=== PATIENT | female | born 1990 | race Caucasian/White ===

== ENCOUNTER 2017-08-06 17:29 | Inpatient (IN) | payer MEDICAID, OTHER ==
[~2017-08-06] VITALS: Ht 165.1 cm; Wt 79.0 kg
[2017-08-06] VITALS (8 sets, daily range): BP systolic 115–137; BP diastolic 57–83; PULSE 79–86; RESP 16–20; TEMP 98.2–98.4
[2017-08-06] MEDS ORDERED: LACTATED RINGER'S 1000 ML INJ 1,000 ML IV PRN (18:02)
[2017-08-06] MEDS ORDERED: LIDOCAINE HCL 1% 50 ML VIAL I-DERMAL PRN (18:15)
[2017-08-06] MEDS ORDERED: ONDANSETRON HCL 4 MG/2 ML VIAL IV PUSH PRN (18:15)
[2017-08-06] MEDS ORDERED: SODIUM CHLORID 0.9% 500 ML INJ 500 ML IV PRN (18:15)
[2017-08-06] MEDS ORDERED: LIDOCAINE HCL 1% 50 ML VIAL INFIL PRN (18:15)
[2017-08-06] MEDS ORDERED: CITRIC ACID-SODIUM CITRATE LIQ 30 ML UDC PO SCH (18:15)
[2017-08-06] MEDS ORDERED: OXYTOCIN 30 UNITS-500ML PREMIX 500 ML IV PRN (18:15)
[2017-08-06] MEDS ORDERED: OXYTOCIN 30 UNITS-500ML PREMIX 500 ML IV ONE (18:15)
[2017-08-06] MEDS ORDERED: MINERAL OIL 10 ML VIAL TOPICAL PRN (18:15)
[2017-08-06] MEDS ORDERED: SODIUM CHLOR 0.9% 1000 ML INJ 1,000 ML IV PRN (18:22)
--- NOTE | 2017-08-06 18:33 | HHI.HP ---
HPI Chief Complaint decreased movement, abdominal pain at term Date Seen: Aug 06, 2017 Travel History International Travel<30 Days: No Contact w/Intl Traveler<30Days: No Known Affected Area: No History of Present Illness HPI 26 yo G1 with EDC 08/10/17 presented to office for routine OB visit with complaint of decreased movement, abdominal cramping and vaginal pain. On exam FHTs 110s, NST reactive but low baseline. SVE 2/80/-1, vaginal bleeding on exam. D/w pt recommend admission on labor and delivery, may be in early labor but based on symptoms and exam and low baseline FHTs would recommend labor induction/augmentation. Pain 2/10 abdominal cramps. No LOF. Weeks Gestation: 39 Para: 0 : 1 Miscarriage: 0 : 0 History Past Medical History Medical History: Denies Significant Hx Obstetric History Obstetric History G1 = current Past Surgical History Surgical History: No Previous Surgery Family History Family History: Negative Social History Alcohol Use: No Tobacco Use: No Substance Abuse: No Allergies-Medications (Allergen,Severity, Reaction): Coded Allergies: No Known Allergies (Unverified , 08/06/17) Review of Systems General / Constitutional: Weight Gain, No: Fever, Chills, Other Eyes: No: Diploplia, Blurred Vision, Visual changes, Pain, Photophobia HENT: No: Headaches, Vertigo, Lightheadedness Cardiovascular: No: Irregular Rhythm, Chest Pain or Discomfort, Palpitations, Tachycardia, Syncope, Varicosities, Edema, Cyanosis Respiratory: No: Cough, Short of Breath, Other Gastrointestinal: No: Nausea, Vomiting, Diarrhea Genitourinary: Pelvic Pain (cramps), Vaginal Bleeding, No: Decreased Urinary Output, Oliguria Musculoskeletal: No: Limited ROM, Weakness, Cramping, Edema, Pain Skin: No Rash, No Itching, No Dryness, No Lumps, No Change in Pigmentation, No Change in Nails, No Alopecia, No Lesions Neurologic: No: Weakness, Dizziness, Syncope, Focal Abnormalities, Coordination Problem, Headache, Slurred Speech, Seizures Psychiatric: No: Depression, Suicidal Ideations, Homicidal Ideation Endocrine: No: Heat Intolerance, Cold Intolerance, Polydipsia, Polyuria, Other Physical Exam Vital Signs Date Time Temp Pulse Resp B/P (MAP) Pulse Ox O2 Delivery O2 Flow Rate FiO2 08/06/17 18:08 98.2 20 08/06/17 18:00 85 127/83 (98) Narrative GENERAL: Well-nourished, well-developed patient. SKIN: Warm and dry. HEAD: Normocephalic and atraumatic. EYES: No scleral icterus. No injection or drainage. ENT: No nasal drainage noted. Mucous membranes pink. Airway patent. NECK: Supple, trachea midline. No JVD. CARDIOVASCULAR: Regular rate and rhythm without murmurs, gallops, or rubs. RESPIRATORY: Breath sounds equal bilaterally. No accessory muscle use. BREASTS: deferred ABDOMEN/GI: Abdomen soft, non-tender, bowel sounds present, no rebound, no guarding Gravid to [39] weeks size Fundal Height: [39] GENITOURINARY: External Genitalia: intact and normal in appearance BUS glands: [wnl] Cervix: [mid] Dilatation: [1-2] Effacement: [801] Station: [-1] Presentation: [vtx] Membranes: [intact Uterine Contractions: [q3-5 min] FHT's: Category: [I] Baseline: [115] Reactive: [y] Variability: [y] Decels: [n] EXTREMITIES: No cyanosis or edema. BACK: Nontender without obvious deformity. No CVA tenderness. NEUROLOGICAL: Awake and alert. Motor and sensory grossly within normal limits. Five out of 5 muscle strength in all muscle groups. Normal speech. Caprini VTE Risk Assessment Caprini VTE Risk Assessment: No/Low Risk (score <= 1) VTE Pharm Contraindication: High risk for bleeding Caprini Risk Assessment Model Point Value = 1 Point Value = 2 Point Value = 3 Point Value = 5 Age 41-60 Minor surgery BMI > 25 kg/m2 Swollen legs Varicose veins or History of unexplained or recurrent spontaneous Oral contraceptives or hormone replacement Sepsis (< 1 month) Serious lung disease, including pneumonia (< 1 month) Abnormal pulmonary function Acute myocardial infarction Congestive heart failure (< 1 month) History of inflammatory bowel disease Medical patient at bed rest Age 61-74 Arthroscopic surgery Major open surgery (> 45 min) Laparoscopic surgery (> 45 min) Malignancy Confined to bed (> 72 hours) Immobilizing plaster cast Central venous access Age >= 75 History of VTE Family history of VTE Factor V Leiden Prothrombin [id number] Lupus anticoagulant Anticardiolipin antibodies Elevated serum homocysteine Heparin-induced thrombocytopenia Other congenital or acquired thrombophilia Stroke (< 1 month) Elective arthroplasty Hip, pelvis, or leg fracture Acute spinal cord injury (< 1 month) Prophylaxis Regimen Total Risk Factor Score Risk Level Prophylaxis Regimen 0-1 Low Early ambulation 2 Moderate Order ONE of the following: *Sequential Compression Device (SCD) *Heparin 5000 units SQ BID 3-4 Higher Order ONE of the following medications: *Heparin 5000 units SQ TID *Enoxaparin/Lovenox 40 mg SQ daily (WT < 150 kg, CrCl > 30 mL/min) *Enoxaparin/Lovenox 30 mg SQ daily (WT < 150 kg, CrCl > 10-29 mL/min) *Enoxaparin/Lovenox 30 mg SQ BID (WT < 150 kg, CrCl > 30 mL/min) AND/OR *Sequential Compression Device (SCD) 5 or more Highest Order ONE of the following medications: *Heparin 5000 units SQ TID (Preferred with Epidurals) *Enoxaparin/Lovenox 40 mg SQ daily (WT < 150 kg, CrCl > 30 mL/min) *Enoxaparin/Lovenox 30 mg SQ daily (WT < 150 kg, CrCl > 10-29 mL/min) *Enoxaparin/Lovenox 30 mg SQ BID (WT < 150 kg, CrCl > 30 mL/min) AND *Sequential Compression Device (SCD) Data Data Vital Signs Reviewed: Yes Orders Orders Admit To Inpatient (08/06/17 ) Vital Signs (Adult) .Per protocol (08/06/17 18:02) Activity Oob Ad [place] (08/06/17 18:02) Heart (08/06/17 18:02) Amnioinfusion (08/06/17 18:02) Urinary Catheter Management .ONCE (08/06/17 18:02) Diet Npo (08/06/17 Dinner) Lactated Ringer's 1000 Ml Inj (Lr 1000 M (08/06/17 18:02) Lactated Ringer's 1000 Ml Inj (Lr 1000 M (08/06/17 18:02) Sodium Chlorid 0.9% 500 Ml Inj (Ns 500 M (08/06/17 18:15) Sodium Chlor 0.9% 1000 Ml Inj (Ns 1000 M (08/06/17 18:22) Lidocaine 1% Inj (50 Ml) (Xylocaine 1% I (08/06/17 18:15) Citric Acid-Sodium Citrate Liq (Bicitra (08/06/17 18:15) Ondansetron Inj (Zofran Inj) (08/06/17 18:15) Fentanyl Inj (Fentanyl Inj) (08/06/17 18:15) Fentanyl Inj (Fentanyl Inj) (08/06/17 18:15) Complete Blood Count With Diff (08/06/17 18:02) Hold Clot (08/06/17 18:02) Abo/Rh Blood Type (08/06/17 18:02) Urinalysis - C+S If Indicated (08/06/17 18:) Drug Screen, Random Urine (08/06/17 18:) Ob/Psych Drug Screen, Urine (08/06/17 18:02) Resp Oxygen Non Rebreathe Mask (08/06/17 ) ^ Epidural / Intrathecal Infus (08/06/17 18:02) Oxytocin 30 Units-500ml Premix (Pitocin (08/06/17 18:15) Lidocaine 1% Inj (50 Ml) (Xylocaine 1% I (08/06/17 18:15) Light Mineral Oil (Muri-Lube Oil) (08/06/17 18:15) ^ Non Stress Test (08/06/17 18:02) Response To Medication .Post New Med Administration, Reaction (08/06/17 18:02) ^ Discontinue Medication (08/06/17 18:02) Oxytocin 30 Units-500ml Premix (Pitocin (08/06/17 18:15) Inpatient Certification (08/06/17 ) Specimen To Be Collected PRN (08/06/17 18:02) Specimen To Be Collected PRN (08/06/17 18:02) Group B Strep: Negative Assessment/Plan Problem List: (1) Decreased movement ICD Codes: O36.8190 - Decreased movements, unspecified trimester, not applicable or unspecified Status: Acute (2) with third trimester bleeding ICD Codes: O46.93 - Antepartum hemorrhage, unspecified, third trimester Status: Acute Assessment and Plan 26 yo G1 with lynn IUP at 39w3d admitted for labor induction v. augmentation, unclear if in early labor when seen in office 1) decreased FM: R NST but low baseline, hopefully will improve with IV hydration; for continuous monitoring on L&D 2) IOL: pt aliya, unclear if early labor or irritability, will evaluate for need for pitocin as indicated 3) VB: suspect related to cervical change, continue to monitor closely 4) GBS negative 5) status: vertex, male, Cat I tracing but baseline low 110-115 currently , continuous monitoring ordered Discharge Planning 2-3d Olena June MD Aug 06, 2017 18:33
[2017-08-06] MEDS ORDERED: PRENTAB7 (18:35)
[2017-08-06] MEDS: LACTATED RINGER'S 1000 ML INJ 1,000 ML IV SCH (19:12)
[2017-08-06 19:26] LABS: BASOPHIL % 0.2 % (0.0-2.0); EOSINOPHIL % 0.6 % (0.0-4.0); HEMATOCRIT 38.9 % (35.0-46.0); HEMOGLOBIN 13.3 GM/DL (11.6-15.3); LYMPH % 27.7 % (9.0-44.0); LYMPHOCYTE # 2.2 TH/MM3 (1.0-4.8); MEAN CELL VOLUME 84.2 FL (80.0-100.0); MEAN CORPUSCULAR HEMOGLOBIN 28.9 PG (27.0-34.0); MEAN CORPUSCULAR HGB CONC 34.3 % (32.0-36.0); MEAN PLATELET VOLUME 12.7 FL (7.0-11.0); MONO % 9.7 % (0.0-8.0); MONOCYTE # 0.8 TH/MM3 (0-0.9); NEUT % 61.8 % (16.0-70.0); PLATELET COUNT 125 TH/MM3 (150-450); RED BLOOD COUNT 4.62 MIL/MM3 (4.00-5.30); RED CELL DISTRIBUTION WIDTH 12.9 % (11.6-17.2); WHITE BLOOD COUNT 8.1 TH/MM3 (4.0-11.0)
[2017-08-06 19:32] LABS: AMORPHOUS SEDIMENT, URINE RARE; BACTERIA, URINE OCC /hpf; BILIRUBIN, URINE NEG (NEG); BLOOD, URINE LARGE (NEG); GLUCOSE,URINE NEG (NEG); KETONE, URINE NEG (NEG); NITRITE,URINE NEG (NEG); SQUAMOUS EPITHELIAL CELL URINE 3 /hpf (0-5); URINE COLOR YELLOW (YELLW/STRAW); URINE LEUKOCYTE ESTERASE MOD (NEG)
[2017-08-07] VITALS (97 sets, daily range): BP systolic 102–146; BP diastolic 61–95; PULSE 57–111; RESP 8–19; TEMP 97.7–98.4; O2SAT 98–100
[2017-08-07] MEDS: LACTATED RINGER'S 1000 ML INJ 1,000 ML IV SCH ×2 (01:12→11:42)
[2017-08-07] MEDS ORDERED: ePHEDrine/NS 25 MG/5 ML SYRINGE ONE (07:17)
[2017-08-07] MEDS ORDERED: fentaNYL 2MCG-BUPIV 0.125% INJ 100 ML ONE (07:45)
[2017-08-07] MEDS ORDERED: DO NOT ADMINISTER ANTICOAGULANTS PRN (09:00)
[2017-08-07] MEDS ORDERED: ePHEDrine/NS 25 MG/5 ML SYRINGE IV PUSH PRN (09:00)
[2017-08-07] MEDS ORDERED: fentaNYL 2MCG-BUPIV 0.125% 100 ML EPIDURAL SCH (09:00)
[2017-08-07] MEDS ORDERED: NO SYSTEM NARCOTICS PRN (09:00)
--- NOTE | 2017-08-07 15:14 | PD.OB.DELI ---
Weeks gestation: 39 Gest age assessed date: Aug 07, 2017 Gest age assessed time: 14:00 Pt started active labor?: No Medical induction of labor?: Yes Medical induction start date: Aug 07, 2017 Medical induction start time: 19:00 Artificial rupture of membrane: Yes Artificial ROM date: Aug 07, 2017 Artifical ROM time: 08:30 Anesthesia: Epidural Episiotomy: None Vaginal Delivery: Normal Presentation: Occiput anterior Nuchal Cord: None Delayed cord clamping (45 sec): Yes Shoulder Dystocia: Breann maneuver done Infant: Male Delivery date: Aug 07, 2017 Delivery time: 14:45 One Minute : 9 Five Minute : 9 Placenta: Spontaneous delivery Laceration: Vaginal laceration, 2 deg Repair: Vicryl running Estimated blood loss: 200cc Rajesh Corbett MD Aug 07, 2017 15:14
[2017-08-07] MEDS ORDERED: WITCH HAZEL 50%/GLYCERIN 12.5% 40 PAD JAR TOPICAL PRN (15:15)
[2017-08-07] MEDS ORDERED: OXYTOCIN 10 UNIT/ML AMP XX PRN (15:15)
[2017-08-07] MEDS ORDERED: ONDANSETRON ODT 4 MG TAB PO PRN (15:15)
[2017-08-07] MEDS ORDERED: BENZOCAINE 20% TOPICAL SPRAY 60 ML CAN TOPICAL PRN (15:15)
[2017-08-07] MEDS ORDERED: OXYTOCIN 30 UNITS-500ML PREMIX 500 ML IV SCH (15:15)
[2017-08-07] MEDS ORDERED: ALUMINUM/MAGNESIUM/SIMETH 30 ML CUP PO PRN (15:15)
[2017-08-07] MEDS ORDERED: ZOLPIDEM TARTRATE 5 MG TAB PO PRN (15:15)
[2017-08-07] MEDS ORDERED: SODIUM CHLORIDE 0.9% FLUSH 10 ML FLUSH IV FLUSH PRN (15:15)
[2017-08-07] MEDS ORDERED: DIPHTH/TETANUS/ACEL PERTUSSIS (BOOSTER) 0.5 ML VIAL/PFS IM ONE (16:00)
[2017-08-07] MEDS ORDERED: MEASLES, MUMPS, RUBELLA VACCINE 0.5 ML VIAL SQ ONE (16:00)
[2017-08-07] MEDS ORDERED: SODIUM CHLORIDE 0.9% FLUSH 10 ML FLUSH IV FLUSH SCH (21:00)
[2017-08-07] MEDS: IBUPROFEN 800 MG TAB PO PRN (22:45)
[2017-08-07] MEDS: ACETAMINOPHEN 325 MG TAB PO PRN (22:46)
[2017-08-07] MEDS: DOCUSATE SODIUM 50 MG/SENNA 8.6 MG TAB PO PRN (22:46)
[2017-08-08] MEDS: ACETAMINOPHEN 325 MG TAB PO PRN ×2 (02:56→07:06)
[2017-08-08] MEDS: IBUPROFEN 800 MG TAB PO PRN ×2 (07:06→15:54)
[2017-08-08 08:00] VITALS: BP 120/71; PULSE 108; RESP 20; TEMP 97.6; O2SAT 98
[2017-08-08] MEDS ORDERED: IBUP1TAB7 PO (08:12)
--- NOTE | 2017-08-08 08:45 | HHI.OB ---
Subjective Post Day: 1 Remarks s/p FT Objective Vitals/I&O Vital Signs Date Time Temp Pulse Resp B/P (MAP) Pulse Ox O2 Delivery O2 Flow Rate FiO2 08/07/17 20:00 98.4 67 16 111/62 (78) 98 08/07/17 16:00 16 08/07/17 15:45 17 08/07/17 15:31 84 131/73 (92) 08/07/17 15:30 18 08/07/17 15:15 79 139/82 (101) 08/07/17 15:15 19 08/07/17 15:01 82 124/65 (84) 08/07/17 15:00 19 08/07/17 14:57 77 127/61 (83) 08/07/17 14:45 111 08/07/17 14:10 71 08/07/17 14:05 59 08/07/17 14:01 69 113/63 (80) 08/07/17 14:00 71 08/07/17 12:05 71 08/07/17 12:05 72 08/07/17 12:00 69 08/07/17 12:00 69 136/75 (95) 08/07/17 12:00 62 08/07/17 11:43 18 08/07/17 11:10 73 08/07/17 11:10 71 08/07/17 11:05 71 08/07/17 11:05 70 08/07/17 11:00 64 08/07/17 11:00 73 08/07/17 11:00 73 134/74 (94) 08/07/17 10:20 76 08/07/17 10:20 69 132/77 (95) 08/07/17 10:20 68 08/07/17 10:15 73 08/07/17 10:15 76 08/07/17 10:10 57 08/07/17 10:10 58 08/07/17 10:05 57 08/07/17 10:05 63 08/07/17 10:00 60 08/07/17 10:00 62 08/07/17 10:00 59 125/78 (94) 08/07/17 09:35 68 08/07/17 09:35 67 08/07/17 09:30 74 3/27/18 09:30 68 133/77 (95) 08/07/17 09:30 71 08/07/17 09:25 76 08/07/17 09:25 78 08/07/17 09:20 67 08/07/17 09:20 66 08/07/17 09:16 73 127/71 (89) 08/07/17 09:15 98.1 68 08/07/17 09:15 18 08/07/17 09:15 66 08/07/17 09:10 66 08/07/17 09:10 67 08/07/17 09:05 69 08/07/17 09:05 71 08/07/17 09:00 65 08/07/17 09:00 69 131/74 (93) 08/07/17 08:55 73 08/07/17 08:55 73 08/07/17 08:50 69 134/76 (95) 08/07/17 08:50 71 08/07/17 08:50 70 08/07/17 08:45 69 08/07/17 08:45 69 130/81 (97) 08/07/17 08:45 69 Objective Remarks GENERAL: Well-nourished, well-developed patient. CARDIOVASCULAR: Regular rate and rhythm without murmurs, gallops, or rubs. RESPIRATORY: Breath sounds equal bilaterally. No accessory muscle use. ABDOMEN/GI: Abdomen soft, non-tender. Fundus: Firm, non-tender at umbilicus. GENITOURINARY: Light to moderate bleeding. EXTREMITIES: No cyanosis or edema, non-tender, without signs of DVT. Medications and IVs Current Medications Medications (Trade) Dose Ordered Sig/Ana Route Start Time Stop Time Status Last Admin Lactated Ringer's 1,000 ml @ 125 mls/hr Q8H IV 08/06/17 18:02 08/07/17 11:42 Lactated Ringer's 1,000 ml @ 3,000 mls/hr Q20M PRN IV 08/06/17 18:02 08/07/17 11:43 Sodium Chloride 1,000 ml @ 100 mls/hr Q10H PRN IV 08/06/17 18:22 (Xylocaine 1% Inj (50 ml)) 0.1 ml UNSCH X1 PRN I-DERMAL 08/06/17 18:15 3/29/18 18:14 (Bicitra Liq) 30 ml CAREER DEVELOPMENT MANAGER PO 08/06/17 18:15 08/10/17 18:14 (Zofran Inj) 4 mg Q6H PRN IV PUSH 08/06/17 18:15 (fentaNYL INJ) 50 mcg Q1H PRN IV PUSH 08/06/17 18:15 (fentaNYL INJ) 100 mcg Q1H PRN IV PUSH 08/06/17 18:15 08/07/17 06:25 (Xylocaine 1% Inj (50 ml)) 10 ml UNSCH X1 PRN INFIL 08/06/17 18:15 08/08/17 18:14 (Muri-Lube Oil) 10 ml UNSCH PRN TOPICAL 08/06/17 18:15 Oxytocin 500 ml @ 0 mls/hr TITRATE PRN IV 08/06/17 18:15 08/06/17 19:38 Miscellaneous Information No systemic narcotics to be given except... UNSCH PRN .XX 08/07/17 09:00 08/08/17 08:59 Miscellaneous Information DO NOT ADMINISTER ANY ANTICOAGUL... UNSCH PRN .XX 08/07/17 09:00 08/08/17 08:59 Fentanyl/ Bupivacaine HCl 100 ml @ 0 mls/hr TITRATE EPIDURAL 08/07/17 09:00 08/07/17 11:43 (ePHEDrine/NS 25 MG/5 ML SYR) 10 mg UNSCH PRN IV PUSH 08/07/17 09:00 08/08/17 08:59 (Pitocin Inj) 20 units UNSCH X1 PRN XX 08/07/17 15:15 08/08/17 15:14 (NS Flush) 2 ml BID IV FLUSH 08/07/17 21:00 (NS Flush) 2 ml UNSCH PRN IV FLUSH 08/07/17 15:15 (Tylenol) 650 mg Q4H PRN PO 08/07/17 15:15 08/08/17 07:06 (Motrin) 800 mg Q8H PRN PO 08/07/17 15:15 08/08/17 07:06 (Americaine 20% Top Spr) 1 spray Q4H PRN TOPICAL 08/07/17 15:15 08/07/17 19:17 (Tucks Pads) 1 applic QID PRN TOPICAL 08/07/17 15:15 08/07/17 19:17 (Josiane-Colace) 2 tab Q12H PRN PO 08/07/17 15:15 08/07/17 22:46 (Ambien) 5 mg HS PRN PO 08/07/17 15:15 (Mag-Al Plus Susp Liq) 15 ml Q8H PRN PO 08/07/17 15:15 (Zofran Odt) 4 mg Q6H PRN PO 08/07/17 15:15 Assessment/Plan Problem List: (1) (spontaneous vaginal delivery) ICD Codes: O80 - Encounter for full-term uncomplicated delivery Status: Acute (2) Decreased movement ICD Codes: O36.8190 - Decreased movements, unspecified trimester, not applicable or unspecified Status: Acute (3) with third trimester bleeding ICD Codes: O46.93 - Antepartum hemorrhage, unspecified, third trimester Status: Acute Assessment and Plan 26 yo s/p FT at 39w4d, induced for decreased FM and VB at term PPD#1 routine supportive care infant doing well, for circ prior to d/c anticipate d/c to home later today or tmrw Discharge Planning 2-3d PP Olena Zhao MD Aug 08, 2017 08:45
[2017-08-08] MEDS: DOCUSATE SODIUM 50 MG/SENNA 8.6 MG TAB PO PRN (17:56)
[2017-08-08] MEDS: LACTATED RINGER'S 1000 ML INJ 1,000 ML IV SCH (18:12)
[2017-08-08 20:35] VITALS: BP 110/69; PULSE 74; RESP 18; TEMP 97.7
--- NOTE | 2017-08-09 07:41 | HHI.DCPOC ---
Discharge Care Plan Diagnosis: (1) (spontaneous vaginal delivery) Your Health Problems Are: Vaginal delivery Report Symptoms to Your Doctor -Temperature above 100.5 degrees -Redness, of incision or excessive or foul smelling drainage -Unusual pain or calf pain -Increased vaginal bleeding -Painful or difficulty urinating -Feelings of extreme sadness or anxiety after 2 weeks Goals to Promote Your Health * To prevent worsening of your condition and complications * To maintain your health at the optimal level Directions to Meet Your Goals Take your medications as prescribed Follow your dietary instruction Follow activity as directed Ensure plenty of rest for recovery Drink fluids for hydration Keep your appointments as scheduled Take your immunizations and boosters as scheduled If your symptoms worsen call your PCP, if no PCP go to Urgent Care Center or Emergency Room Smoking is Dangerous to Your Health. Avoid second hand smoke Call the 24-hour crisis hotline for domestic abuse at Ricardo Harrison MD Aug 09, 2017 07:41
--- NOTE | 2017-08-09 07:43 | HHI.OB ---
Subjective Post Day: 2 Remarks Doing well, pain controlled, vaginal bleeding less than menses,. Prepared for discharge home today. Objective Vitals/I&O Vital Signs Date Time Temp Pulse Resp B/P (MAP) Pulse Ox O2 Delivery O2 Flow Rate FiO2 08/08/17 20:35 97.7 74 18 110/69 (83) 08/08/17 08:00 97.6 108 20 120/71 (87) 98 Objective Remarks GENERAL: Well-nourished, well-developed patient. CARDIOVASCULAR: Regular rate and rhythm without murmurs, gallops, or rubs. RESPIRATORY: Breath sounds equal bilaterally. No accessory muscle use. ABDOMEN/GI: Abdomen soft, non-tender. Fundus: Firm, non-tender at umbilicus. GENITOURINARY: Light to moderate bleeding. EXTREMITIES: No cyanosis or edema, non-tender, without signs of DVT. Medications and IVs Current Medications Medications (Trade) Dose Ordered Sig/Ana Route Start Time Stop Time Status Last Admin Lactated Ringer's 1,000 ml @ 125 mls/hr Q8H IV 08/06/17 18:02 08/07/17 11:42 Lactated Ringer's 1,000 ml @ 3,000 mls/hr Q20M PRN IV 08/06/17 18:02 08/07/17 11:43 Sodium Chloride 1,000 ml @ 100 mls/hr Q10H PRN IV 08/06/17 18:22 (Xylocaine 1% Inj (50 ml)) 0.1 ml UNSCH X1 PRN I-DERMAL 08/06/17 18:15 08/09/17 18:14 (Bicitra Liq) 30 ml FOOD SERVICE CLERK PO 08/06/17 18:15 08/10/17 18:14 (Zofran Inj) 4 mg Q6H PRN IV PUSH 08/06/17 18:15 (fentaNYL INJ) 50 mcg Q1H PRN IV PUSH 08/06/17 18:15 (fentaNYL INJ) 100 mcg Q1H PRN IV PUSH 08/06/17 18:15 08/07/17 06:25 (Muri-Lube Oil) 10 ml UNSCH PRN TOPICAL 08/06/17 18:15 Oxytocin 500 ml @ 0 mls/hr TITRATE PRN IV 08/06/17 18:15 08/06/17 19:38 Fentanyl/ Bupivacaine HCl 100 ml @ 0 mls/hr TITRATE EPIDURAL 08/07/17 09:00 08/07/17 11:43 (NS Flush) 2 ml BID IV FLUSH 08/07/17 21:00 (NS Flush) 2 ml UNSCH PRN IV FLUSH 08/07/17 15:15 (Tylenol) 650 mg Q4H PRN PO 08/07/17 15:15 08/08/17 07:06 (Motrin) 800 mg Q8H PRN PO 08/07/17 15:15 08/08/17 15:54 (Americaine 20% Top Spr) 1 spray Q4H PRN TOPICAL 08/07/17 15:15 08/07/17 19:17 (Tucks Pads) 1 applic QID PRN TOPICAL 08/07/17 15:15 08/07/17 19:17 (Josiane-Colace) 2 tab Q12H PRN PO 08/07/17 15:15 08/08/17 17:56 (Ambien) 5 mg HS PRN PO 08/07/17 15:15 (Mag-Al Plus Susp Liq) 15 ml Q8H PRN PO 08/07/17 15:15 (Zofran Odt) 4 mg Q6H PRN PO 08/07/17 15:15 Assessment/Plan Problem List: (1) (spontaneous vaginal delivery) ICD Codes: O80 - Encounter for full-term uncomplicated delivery Status: Acute (2) Decreased movement ICD Codes: O36.8190 - Decreased movements, unspecified trimester, not applicable or unspecified Status: Acute (3) with third trimester bleeding ICD Codes: O46.93 - Antepartum hemorrhage, unspecified, third trimester Status: Acute Assessment and Plan 26 yo s/p FT at 39w4d, induced for decreased FM and VB at term 1. PPD#2: Meeting milestones, discharge home today, discussed precautions, expectations and follow-up. -Hester male, status post circumcision. Ricardo Harrison MD Aug 09, 2017 07:43
[2017-08-09] MEDS: DOCUSATE SODIUM 50 MG/SENNA 8.6 MG TAB PO PRN (08:51)
[2017-08-09] MEDS: ACETAMINOPHEN 325 MG TAB PO PRN (08:51)
[2017-08-09 09:00] VITALS: BP 125/72; PULSE 79; RESP 18; TEMP 98
== END 2017-08-09 12:39 | disposition home or self-care (01) | DRG 774 ==
LOC: H2EB 17:29 → H1EA 08-07 17:00
PROVIDERS: ADMIT Obstetrics & Gynecology; ATTEND Obstetrics & Gynecology
PROC: 10907ZC Drainage of Amniotic Fluid, Therapeutic from Products of Conception, Via Natural or Artificial Opening (ICD-10-PCS; 2017-08-06)
PROC: 3E033VJ Introduction of Other Hormone into Peripheral Vein, Percutaneous Approach (ICD-10-PCS; 2017-08-06)
PROC: 00HU33Z Insertion of Infusion Device into Spinal Canal, Percutaneous Approach (ICD-10-PCS; 2017-08-06)
PROC: 3E0R3BZ Introduction of Anesthetic Agent into Spinal Canal, Percutaneous Approach (ICD-10-PCS; 2017-08-06)
PROC: 10E0XZZ Delivery of Products of Conception, External Approach (ICD-10-PCS; principal; 2017-08-07)
PROC: 0KQM0ZZ Repair Perineum Muscle, Open Approach (ICD-10-PCS; 2017-08-07)
DX: O36.8130 Decreased fetal movements, third trimester, not applicable or unspecified (principal); O46.93 Antepartum hemorrhage, unspecified, third trimester; O99.113 Other diseases of the blood and blood-forming organs and certain disorders involving the immune mechanism complicating pregnancy, third trimester; O66.0 Obstructed labor due to shoulder dystocia; O70.1 Second degree perineal laceration during delivery; Z3A.39 39 weeks gestation of pregnancy; Z37.0 Single live birth; Z23 Encounter for immunization
CPT/HCPCS: 59025; 80307; 81001; 85025; 86900; 86901; 87086; 90715; G0481; J2590; J3010; J7120

== ENCOUNTER 2017-08-20 11:03 | Emergency (ER) | payer OTHER ==
[~2017-08-20] VITALS: Ht 165.1 cm; Wt 68.2 kg
[~2017-08-20 11:03] MED LIST: IBUP1TAB7 PO; PRENTAB7
[2017-08-20 11:35] VITALS: BP 127/74; PULSE 93; RESP 16; TEMP 98.6; O2SAT 99
[2017-08-20 13:48] LABS: AUTOMATED NEUTROPHIL # 4.2 TH/MM3 (1.8-7.7); BASOPHIL % 0.4 % (0.0-2.0); EOSINOPHIL % 0.4 % (0.0-4.0); HEMATOCRIT 42.2 % (35.0-46.0); HEMOGLOBIN 14.6 GM/DL (11.6-15.3); LYMPH % 18.7 % (9.0-44.0); MEAN CELL VOLUME 85.5 FL (80.0-100.0); MEAN CORPUSCULAR HEMOGLOBIN 29.6 PG (27.0-34.0); MEAN CORPUSCULAR HGB CONC 34.6 % (32.0-36.0); MEAN PLATELET VOLUME 10.9 FL (7.0-11.0); MONO % 4.2 % (0.0-8.0); MONOCYTE # 0.2 TH/MM3 (0-0.9); NEUT % 76.3 % (16.0-70.0); PLATELET COUNT 171 TH/MM3 (150-450); RED BLOOD COUNT 4.94 MIL/MM3 (4.00-5.30); RED CELL DISTRIBUTION WIDTH 13.4 % (11.6-17.2); WHITE BLOOD COUNT 5.6 TH/MM3 (4.0-11.0)
[2017-08-20 13:50] VITALS: BP 109/70; PULSE 100; RESP 18; TEMP 97.6; O2SAT 100
--- NOTE | 2017-08-20 13:50 | PD ---
HPI Chief Complaint: Headache Time Seen by Provider: 13:49 Travel History International Travel<30 days: No Contact w/Intl Traveler<30days: No Traveled to known affect area: No History of Present Illness HPI 26-year-old female came to the emergency room with history of fever, chills, headache for past 3 days. Patient is 2 weeks . Patient says that she took her temperature at home and T-max was 100.6. She had a full-term vaginal delivery which was uneventful. Patient says that she stopped breast- feeding 3 days ago. She has been taking ibuprofen for these symptoms. Currently in triage she was afebrile and vital signs were stable. She called her OB who asked her to come to the emergency room to be checked out. Patient is A0. Upon asking she denies any cough, dysuria, abdominal or pelvic pain. She denies of any foul-smelling vaginal discharge or blood. She says she is still bleeding but it has substantially lessened currently. No history of vomiting or diarrhea. She did say that for past 2 days her appetite has been less and she has been somewhat nauseous although she has not vomited. [facility], LAT[facility] Past Medical History Narrative Medical List of her past medical, surgical, social and family history is reviewed from the nursing note. ?: Not Social History Alcohol Use: No Tobacco Use: No Allergies-Medications (Allergen,Severity, Reaction): Coded Allergies: No Known Allergies (Unverified , 08/07/17) Comments No known drug allergies. Reported Meds & Prescriptions Reported Meds & Active Scripts Active Ibuprofen 800 Mg Tab 800 Mg PO Q8H PRN Reported Vitamins Tablet (Pnv No.95/Ferrous Fum/Folic AC) 28 Mg Iron-800 Mcg Tablet Narrative Medication List of her home medications reviewed from the nursing note. Review of Systems Except as stated in HPI: all other systems reviewed are Neg General / Constitutional: Positive: Fever, Chills HENT: Positive: Headaches Physical Exam Narrative GENERAL: Awake, alert, no obvious distress SKIN: Focused skin assessment warm/dry. Breast: Bilateral breast exam shows tendons distended and engorged breasts. These are not particularly tender and no lumps felt. HEAD: Atraumatic. Normocephalic. EYES: Pupils equal and round. No scleral icterus. No injection or drainage. ENT: No nasal bleeding or discharge. Mucous membranes pink and moist. NECK: Trachea midline. No JVD. CARDIOVASCULAR: Regular rate and rhythm. No murmur appreciated. RESPIRATORY: No accessory muscle use. Clear to auscultation. Breath sounds equal bilaterally. GASTROINTESTINAL: Abdomen soft, non-tender, nondistended. Hepatic and splenic margins not palpable. MUSCULOSKELETAL: No obvious deformities. No clubbing. No cyanosis. No edema. NEUROLOGICAL: Awake and alert. No obvious cranial nerve deficits. Motor grossly within normal limits. Normal speech. PSYCHIATRIC: Appropriate mood and affect; insight and judgment normal. Data Data Last Documented VS Orders Orders Complete Blood Count With Diff (08/20/17 11:37) Comprehensive Metabolic Panel (08/20/17 11:37) Urinalysis - C+S If Indicated (08/20/17 11:37) Influenzae A/B Antigen (08/20/17 11:37) Ed Urine Pregnancytest Poc (08/20/17 11:37) Blood Culture (08/20/17 14:02) Ed Discharge Order (08/20/17 15:27) Labs Laboratory Tests Test 08/20/17 12:25 White Blood Count 5.6 TH/MM3 Red Blood Count 4.94 MIL/MM3 Hemoglobin 14.6 GM/DL Hematocrit 42.2 % Mean Corpuscular Volume 85.5 FL Mean Corpuscular Hemoglobin 29.6 PG Mean Corpuscular Hemoglobin Concent 34.6 % Red Cell Distribution Width 13.4 % Platelet Count 171 TH/MM3 Mean Platelet Volume 10.9 FL Neutrophils (%) (Auto) 76.3 % Lymphocytes (%) (Auto) 18.7 % Monocytes (%) (Auto) 4.2 % Eosinophils (%) (Auto) 0.4 % Basophils (%) (Auto) 0.4 % Neutrophils # (Auto) 4.2 TH/MM3 Lymphocytes # (Auto) 1.0 TH/MM3 Monocytes # (Auto) 0.2 TH/MM3 Eosinophils # (Auto) 0.0 TH/MM3 Basophils # (Auto) 0.0 TH/MM3 CBC Comment DIFF FINAL Differential Comment Urine Color LIGHT-YELLOW Urine Turbidity CLEAR Urine pH 6.5 Urine Specific Pax 1.008 Urine Protein NEG mg/dL Urine Glucose (UA) NEG mg/dL Urine Ketones NEG mg/dL Urine Occult Blood NEG Urine Nitrite NEG Urine Bilirubin NEG Urine Urobilinogen LESS THAN 2.0 MG/DL Urine Leukocyte Esterase NEG Urine RBC LESS THAN 1 /hpf Urine WBC 1 /hpf Urine Squamous Epithelial Cells <1 /hpf Microscopic Urinalysis Comment CULT NOT INDICATED Blood Urea Nitrogen 9 MG/DL Creatinine 0.80 MG/DL Random Glucose 79 MG/DL Total Protein 7.9 GM/DL Albumin 3.3 GM/DL Calcium Level 9.4 MG/DL Alkaline Phosphatase 114 U/L Aspartate Amino Transf (AST/SGOT) 39 U/L Alanine Aminotransferase (ALT/SGPT) 44 U/L Total Bilirubin 0.5 MG/DL Sodium Level 139 MEQ/L Potassium Level 3.6 MEQ/L Chloride Level 106 MEQ/L Carbon Dioxide Level 23.7 MEQ/L Anion Gap 9 MEQ/L Estimat Glomerular Filtration Rate 87 ML/MIN MDM Medical Decision Making Medical Screen Exam Complete: Yes Emergency Medical Condition: Yes Medical Record Reviewed: Yes Differential Diagnosis Bacteremia, UTI, breast abscess, viral illness Narrative Course 2:09 PM blood test was ordered from triage. CBC is back and is within normal limit. Awaiting for the chemistry and UA currently. I have ordered a blood culture as well. I have asked the nurse to find a breast pump for the patient. I have encouraged the patient to pump and see if she gets any milk out of the breast since they feel pretty distended and engorged. That could be the site of her infection. 3:28 PM I discussed the case with Dr. Tolbert and as per her patient can put ice packs on her breasts and tightfitting bras to stop the milk production. She recommended no pumping. She was okay with the rest of the plan of discharging her home and follow up with her MOBILE MECHANIC. I have mentioned this to the patient and she understands. Patient will be discharged home. UA is negative. Procedures EKG Prior to Arrival: No Diagnosis Primary Impression: fever Referrals: Primary Care Physician 2 days Additional Instructions: Please follow-up with your MOBILE MECHANIC in next 2 days. Apply ice packs on your breasts and wear tight fitting bra to stop the milk production. He can take Tylenol or Motrin for the fever. Please return to the emergency room if the condition worsens or any other new concerns. He should drink plenty of fluids to stay hydrated. Disposition: 01 DISCHARGE HOME Condition: Stable Iban Sánchez MD Aug 20, 2017 13:50
[2017-08-20 14:04] LABS: ALBUMIN 3.3 GM/DL (3.4-5.0); AST (GOT) 39 U/L (15-37); BICARBONATE 23.7 MEQ/L (21.0-32.0); BLOOD UREA NITROGEN 9 MG/DL (7-18); CALCIUM 9.4 MG/DL (8.5-10.1); CHLORIDE 106 MEQ/L (98-107); GLOMERULAR FILTRATION RATE 87 ML/MIN (>89); GLUCOSE,RANDOM 79 MG/DL (74-106); SODIUM (NA) 139 MEQ/L (136-145)
[2017-08-20 14:06] LABS: ALKALINE PHOSPHATASE 114 U/L (45-117); ALT (GPT) 44 U/L (10-53); TOTAL BILIRUBIN ADULT 0.5 MG/DL (0.2-1.0); TOTAL PROTEIN 7.9 GM/DL (6.4-8.2)
[2017-08-20 15:13] LABS: BILIRUBIN, URINE NEG (NEG); BLOOD, URINE NEG (NEG); GLUCOSE,URINE NEG (NEG); KETONE, URINE NEG (NEG); NITRITE,URINE NEG (NEG); PH, URINE 6.5 (5.0-8.5); SQUAMOUS EPITHELIAL CELL URINE <1 /hpf (0-5); URINE COLOR LIGHT-YELLOW (YELLW/STRAW); URINE LEUKOCYTE ESTERASE NEG (NEG)
== END 2017-08-20 15:54 | disposition home or self-care (01) ==
LOC: NEPD 11:03
DX: O86.4 Pyrexia of unknown origin following delivery (principal)
CPT/HCPCS: 80053; 81001; 84703; 85025; 87040; 87804; 99283